=== PATIENT | female | born 1995 | race Caucasian/White ===

== ENCOUNTER 2019-06-19 18:02 | Emergency (ER) | payer OTHER ==
--- NOTE | 2019-06-19 19:51 | ER Document Report ---
ED Medical Screen (RME) - General Chief Complaint: Flank Pain Stated Complaint: BLOOD IN URINE Time Seen by Provider: 06/19/19 19:41 Mode of Arrival: Ambulatory Information source: Patient Notes: 24-year-old female presents to ED for left flank pain with hematuria burning with urination and nausea and lightheadedness and dizziness. She is alert oriented respirations regular nonlabored at this time. She states she did go to the urgent care and they told her she was probably going to need IV fluids and she would need to go to the emergency room. She states she has not been drinking enough fluids she thinks she is probably dehydrated. She states she has had UTIs in the past that have been bad enough that they were almost kidney infections. She states she is a former smoker has not smoked for the last 2 weeks. She states she does drink daily 8-10 drinks a day. She is alert oriented respirations regular nonlabored at this time. I will get blood and urine and renal ultrasound and have her seen by another provider. I have greeted and performed a rapid initial assessment of this patient. A comprehensive ED assessment and evaluation of the patient, analysis of test res ults and completion of medical decision making process will be conducted by an additional ED providers. Past Medical History - General Information source: Patient - Social History Cigarette use (# per day): No - Quit 2 weeks ago Frequency of alcohol use: Heavy - 8-10 drinks a day Drug Abuse: None Lives with: Alone Family history: Reviewed & Not Pertinent - Past Medical History Cardiac Medical History: Reports: None Pulmonary Medical History: Reports: None EENT Medical History: Reports: None Neurological Medical History: Reports: None Endocrine Medical History: Reports: Other - Hypoglycemia, Renal/ Medical History: Reports: Other - multiple miscarriages Malignancy Medical History: Reports: None GI Medical History: Reports: None Musculoskeltal Medical History: Reports None Skin Medical History: Reports None Psychiatric Medical History: Reports: None Traumatic Medical History: Reports: None Infectious Medical History: Reports: None Past Surgical History: Reports: Hx Umbilical Hernia Physical Exam - Vital signs Vitals: Temp Pulse Resp BP Pulse Ox 98.2 F 92 18 125/73 98 06/19/19 18:17 06/19/19 18:17 06/19/19 18:17 06/19/19 18:17 06/19/19 18:17 Course - Vital Signs Vital signs: Temp Pulse Resp BP Pulse Ox 98.2 F 92 18 125/73 98 06/19/19 18:17 06/19/19 18:17 06/19/19 18:17 06/19/19 18:17 06/19/19 18:17
[2019-06-19 20:22] LABS: ABSOLUTE BASOPHILS # (AUTO) 0.1 10^3/uL (0.0-0.2); ABSOLUTE LYMPHOCYTES (AUTO) 1.9 10^3/uL (0.5-4.7); ABSOLUTE MONOCYTES (AUTO) 0.8 10^3/uL (0.1-1.4); ABSOLUTE NEUT (AUTO) 7.4 10^3/uL (1.7-8.2); BASOPHILS % (AUTO) 0.5 % (0-2); EOSINOPHILS % (AUTO) 0.4 % (0-6); HEMATOCRIT 44.7 % (36.0-47.0); HEMOGLOBIN 15.9 g/dL (12.0-15.5); LYMPHOCYTES % (AUTO) 18.7 % (13-45); MEAN CORPUSCULAR HEMOGLOBIN 30.8 pg (27.0-33.4); MEAN CORPUSCULAR HGB CONC 35.5 g/dL (32.0-36.0); MEAN CORPUSCULAR VOLUME 87 fl (80-97); MONOCYTES % (AUTO) 7.8 % (3-13); PLATELET COUNT 278 10^3/uL (150-450); RED BLOOD COUNT 5.15 10^6/uL (3.72-5.28); RED CELL DISTRIBUTION WIDTH 14.3 % (11.5-14.0); SEGMENTED NEUTROPHILS % (AUTO) 72.6 % (42-78); TOTAL CELLS COUNTED % (AUTO) 100 %; WHITE BLOOD COUNT 10.1 10^3/uL (4.0-10.5)
[2019-06-19 20:38] LABS: ALBUMIN 5.8 g/dL (3.5-5.0); ALKALINE PHOSPHATASE 71 U/L (38-126); ANION GAP 14 (5-19); ASPARTATE AMINO TRANSFERASE 22 U/L (14-36); BILIRUBIN,DIRECT 0.2 mg/dL (0.0-0.4); BILIRUBIN,TOTAL 0.9 mg/dL (0.2-1.3); BLOOD UREA NITROGEN 7 mg/dL (7-20); CALCIUM 10.2 mg/dL (8.4-10.2); CARBON DIOXIDE 25 mmol/L (22-30); CHLORIDE 102 mmol/L (98-107); GLUCOSE 93 mg/dL (75-110); POTASSIUM 3.9 mmol/L (3.6-5.0); TOTAL PROTEIN 9.7 g/dL (6.3-8.2)
[2019-06-19 20:39] LABS: ALCOHOL < 10 mg/dL (NONE DETECTED); APPEARANCE,URINE CLOUDY; BILIRUBIN,URINE NEGATIVE (NEGATIVE); COLOR,URINE YELLOW; GLUCOSE, URINE NEGATIVE (NEGATIVE); KETONES,URINE NEGATIVE (NEGATIVE); PROTEIN,URINE 30 mg/dL (NEGATIVE); URINE SPECIFIC GRAVITY 1.008; UROBILINOGEN,URINE NEGATIVE mg/dL (<2.0)
--- NOTE | 2019-06-19 21:02 | RADIOLOGY REPORT (SQ) ---
EXAM DESCRIPTION: US RETROPERITONEUM COMPLETED DATE/TME: 06/19/2019 19:52 CLINICAL HISTORY: 24 years Female Left flank pain COMPARISON: None. TECHNIQUE: Transabdominal grayscale imaging performed to evaluate the kidneys and urinary bladder. FINDINGS: The right kidney is normal in size and echogenicity. No hydronephrosis. No evidence of mass or calculus. Left kidney also normal in size and echogenicity. 4 mm echogenic focus in the midportion. No hydronephrosis. Bladder is not well seen. IMPRESSION: No evidence of hydronephrosis Small 4 mm left renal stone.
--- NOTE | 2019-06-19 23:00 | ER Document Report ---
ED General - General Chief Complaint: Urinary Problem Stated Complaint: BLOOD IN URINE Time Seen by Provider: 06/19/19 19:41 Mode of Arrival: Ambulatory Information source: Patient Notes: 24-year-old female presents to ED for left flank pain with hematuria burning with urination and nausea and lightheadedness and dizziness. She is alert oriented respirations regular nonlabored at this time. She states she did go to the urgent care and they told her she was probably going to need IV fluids and she would need to go to the emergency room. She states she has not been drinking enough fluids she thinks she is probably dehydrated. She states she has had UTIs in the past that have been bad enough that they were almost kidney infections. She states she is a former smoker has not smoked for the last 2 weeks. She states she does drink daily 8-10 drinks a day. She is alert oriented respirations regular nonlabored at this time. I will get blood and urine and renal ultrasound and have her seen by another provider. 24-year-old female arrives with her with chief complaint of having left flank pain and hematuria for 24 hours but also dysuria for 1 week. Patient has a prior history of similar symptoms. She has never had a kidney stone in the past. Her father and aunt have required lithotripsy and multiple other procedures for their kidney stones.. Patient reports her anxiety has been increased to the last 2 weeks after she stopped smoking. She started smoking when she was 16 and smoked between 2 and 3 packs/day.. She has a less than with a 16 hemoglobin. Patient also reports she was vaping for the last 4 months and stopped this when she was in [place]. She was coughing up black phlegm at the time. TRAVEL OUTSIDE OF THE [place] IN LAST 30 DAYS: No - HPI Onset: This morning - Related Data Allergies/Adverse Reactions: Fish Containing Products Allergy (Verified 06/19/19 22:08) hydroxyzine Allergy (Verified 06/19/19 22:08) ibuprofen Allergy (Verified 06/19/19 22:08) latex Allergy (Verified 06/19/19 23:37) oxycodone Allergy (Verified 06/19/19 22:08) Penicillins Allergy (Verified 06/19/19 22:08) promethazine Allergy (Verified 06/19/19 23:37) tramadol Allergy (Verified 06/19/19 22:08) Past Medical History - General Information source: Patient - Social History Smoking Status: Former Smoker Cigarette use (# per day): No - Quit 2 weeks ago Chew tobacco use (# tins/day): No Smoking Education Provided: No Frequency of alcohol use: Heavy Drug Abuse: None Lives with: Alone Family History: Reviewed & Not Pertinent Patient has suicidal ideation: No Patient has homicidal ideation: No - Past Medical History Cardiac Medical History: Reports: None Pulmonary Medical History: Reports: None EENT Medical History: Reports: None Neurological Medical History: Reports: None Endocrine Medical History: Reports: Other - Hypoglycemia, Renal/ Medical History: Reports: Other - multiple miscarriages Malignancy Medical History: Reports: None GI Medical History: Reports: None Musculoskeletal Medical History: Reports None Skin Medical History: Reports None Psychiatric Medical History: Reports: None, Hx Depression Traumatic Medical History: Reports: None Infectious Medical History: Reports: None Past Surgical History: Reports: Hx Umbilical Hernia Review of Systems - Review of Systems Constitutional: See HPI, Weakness - Patient has had poor p.o. intake and limited fluids and is very dry EENT: No symptoms reported Cardiovascular: No symptoms reported Respiratory: No symptoms reported Gastrointestinal: No symptoms reported Genitourinary: No symptoms reported Female Genitourinary: No symptoms reported Musculoskeletal: No symptoms reported Skin: No symptoms reported Hematologic/Lymphatic: No symptoms reported Neurological/Psychological: No symptoms reported Physical Exam - Vital signs Vitals: Temp Pulse Resp BP Pulse Ox 98.2 F 92 18 125/73 98 06/19/19 18:17 06/19/19 18:17 06/19/19 18:17 06/19/19 18:17 06/19/19 18:17 Interpretation: Normal - HEENT Head: Normocephalic Eyes: Normal Conjunctiva: Normal Cornea: Normal Extraocular movements intact: Yes Eyelashes: Normal Pupils: PERRL Sinus: Normal Nasal: Normal Mucous membranes: Dry Pharynx: Normal Neck: Normal - Respiratory Respiratory status: No respiratory distress Chest status: Nontender Breath sounds: Normal Chest palpation: Normal - Cardiovascular Rhythm: Regular Heart sounds: Normal auscultation Murmur: No Friction rub: No Dorcas's crunch: No - Abdominal Inspection: Normal Distension: No distension Bowel sounds: Normal Tenderness: Tender - Suprapubic as well as left flank Organomegaly: No organomegaly - Back Back: Normal - Extremities General upper extremity: Normal inspection General lower extremity: Normal inspection - Neurological Neuro grossly intact: Yes Cognition: Normal Orientation: AAOx4 [place] Coma Scale Eye Opening: Spontaneous Genie Coma Scale Verbal: Oriented Genie Coma Scale Motor: Obeys Commands Genie Coma Scale Total: 15 Speech: Normal Cranial nerves: Normal Cerebellar coordination: Normal Motor strength normal: LUE, RUE, LLE, RLE - Psychological Associated symptoms: Normal affect - Skin Skin Temperature: Warm Skin Moisture: Dry Course - Vital Signs Vital signs: Temp Pulse Resp BP Pulse Ox 98.6 F 72 18 114/67 99 06/19/19 22:57 06/19/19 22:57 06/19/19 22:57 06/19/19 22:57 06/19/19 22:57 - Laboratory Result Diagrams: 06/19/19 20:05 06/19/19 20:05 Laboratory results interpreted by me: 06/19/19 06/19/19 06/19/19 20:05 20:05 20:05 Hgb 15.9 H RDW 14.3 H Creatinine 0.44 L Total Protein 9.7 H Albumin 5.8 H Urine Protein 30 H Urine Blood LARGE H Leukocyte Esterase Rfl LARGE H - Diagnostic Test Radiology reviewed: Reports reviewed Radiology results interpreted by me: 06/20/19 01:58 Ultrasound reported kidney stone on the left [address] reveals no kidney stone; when informed of this patient advised" that she may have passed a kidney stone" Critical Care Note - Critical Care Note Total time excluding time spent on procedures (mins): 90 Comments: Patient and were informed of lab reports and ultrasound report and advised for IV fluids and for CT scan to evaluate where kidney stone lies. Discharge - Discharge Clinical Impression: Kidney stones, Acute hemorrhagic cystitis, Polycythemia secondary to smoking Hematuria Qualifiers: Hematuria type: unspecified type Qualified Code(s): R31.9 - Hematuria, unspecified Cigarette nicotine dependence Qualifiers: Substance use status: uncomplicated Qualified Code(s): F17.210 - Nicotine dependence, cigarettes, uncomplicated Condition: Good Disposition: HOME, SELF-CARE Additional Instructions: Follow-up with personal doctor ; return to ER as needed; take medicines as directed; good luck with continuing your cigarette cessation.. If you continue to be cigarette free for greater than 5 years your heart will be as clean as if you have never smoked but you will continue to have some cigarette margaret in your lungs. This will remain there for your life but cessation now will decrease your risk for lung cancer. Also encourage fluids avoid carbonated drinks and I advised either tea or water or Pedialyte for now. Avoid running jumping or using your Achilles or knee tendons because of the Levaquin medication and avoid sun bathing for least 2 weeks. Prescriptions: Lorazepam [Ativan 1 mg Tablet] 1 mg PO HSP PRN #10 tablet PRN Reason: Levofloxacin [Levaquin 500 mg Tablet] 500 mg PO DAILY #10 tablet
[2019-06-19] MEDS ORDERED: NORMAL SALINE 1000 ML 1,000 ML IV ONE (23:04)
[2019-06-19] MEDS ORDERED: KETOROLAC TROMETHAMINE INJ/PF 30 MG/1 ML SDV IV ONE (23:05)
[2019-06-19] MEDS ORDERED: PROMETHAZINE HCL INJ 25 MG/1 ML VIAL IV ONE (23:06)
[2019-06-20] MEDS ORDERED: ONDANSETRON HCL INJ/PF 4 MG/2 ML SDV IV ONE (00:02)
[2019-06-20] MEDS ORDERED: LEVOFLOXACIN 750 MG/D5W RTU 150 ML IV ONE (01:26)
--- NOTE | 2019-06-20 01:28 | RADIOLOGY REPORT (SQ) ---
EXAM DESCRIPTION: CT ABDOMEN PELVIS WITHOUT IV CONTRAST COMPLETED DATE/TME: 06/19/2019 23:04 CLINICAL HISTORY: 24 years, Female, left flank pain. HCG NEG COMPARISON: Ultrasound 06/19/2019 TECHNIQUE: 324 Images stored on PACS. All CT scanners at this facility use dose modulation, iterative reconstruction, and/or weight based dosing when appropriate to reduce radiation dose to as low as reasonably achievable (ALARA). [facility]: Dose Right [facility]: CareDose [facility]: Dose Right [facility]: Teradose 4D [facility]: [employer] LIMITATIONS: None. FINDINGS: The visualized lung bases are unremarkable. Osseous structures are grossly intact. The visualized liver, spleen, adrenal glands, pancreas, kidneys are unremarkable. Questionable small left renal calculus described on ultrasound is not appreciated on CT. No obstructing calculus or hydronephrosis. The gallbladder is present. No gross evidence for bowel obstruction. Large amount of stool in the colon. Normal appendix. No free air or free fluid. IMPRESSION: No definitive urinary tract calculi. Abundant stool in the colon TECHNICAL DOCUMENTATION: Quality ID # [id number]: Final reports with documentation of one or more dose reduction techniques (e.g., Automated exposure control, adjustment of the mA and/or kV according to patient size, use of iterative reconstruction technique) copyright 2011 [employer]- All Rights Reserved
[2019-06-20] MEDS ORDERED: LEVOFLOXACIN 750 MG TABLET PO ONE (01:44)
[2019-06-20 02:35] VITALS: BP 109/68
== END 2019-06-20 02:40 | disposition home or self-care (01) ==
LOC: ER 18:02
DX: N30.01 Acute cystitis with hematuria (principal); N20.0 Calculus of kidney; F17.218 Nicotine dependence, cigarettes, with other nicotine-induced disorders; D75.1 Secondary polycythemia; R11.0 Nausea; R53.1 Weakness; R42 Dizziness and giddiness; Z91.013 Allergy to seafood; Z88.8 Allergy status to other drugs, medicaments and biological substances; Z88.6 Allergy status to analgesic agent; Z88.5 Allergy status to narcotic agent; Z91.040 Latex allergy status; Z88.0 Allergy status to penicillin
CPT/HCPCS: 99285; 96361; 96374; 36415; 87086; 80307; 84703; 85025; 87088; 80053; 81001; 76770; 74176; J2405; J7030; 87186

== ENCOUNTER 2019-07-26 00:12 | Emergency (ER) | payer OTHER ==
--- NOTE | 2019-07-26 02:56 | ER Document Report ---
Entered by SAHIL FITCH SCRIBE 07/26/19 0139 Acting as scribe for:ALYCE SOLIMAN IV, MD ED General - General Chief Complaint: Chest Pain Stated Complaint: CHEST PAIN Time Seen by Provider: 07/26/19 01:15 Information source: Patient Notes: This 24-year-old female presents to the emergency department complaining of chest pain that began two days ago. Patient explains that chest pain was on and off yesterday then her chest pain was worse today with radiation to her back. Patient reports fever (99), swollen left lymph node and thick mucous. Patient denies cough and body aches. Patient explains that both of her parents, who live in [place], have tested positive for COVID-19. Patient said that the last time she was in contact with her parents was a couple of months ago. Patient states that around that time, she was seen by her PCP for fever and respiratory symptoms. Patient explains that her results came back negative for influenza and at the time she could not have the COVID-19 test "due to the yin". Patient said that she was given albuterol and some antibiotics for walking pnuemonia. Patient said that she did not take the antibiotics but used the inhaler which provided relief. Patient said that she felt fine up until two days ago. Patient said that her lungs feel like "they are on fire" and the "air in my windpipe hurts". Patient mentions that due to her severe anxiety and medicine changes she has had some panic attacks where she has had a hard time breathing. Patient also states that she quit smoking a few months ago and "caved two days ago with two cigarettes". TRAVEL OUTSIDE OF THE [place] IN LAST 30 DAYS: No - Related Data Allergies/Adverse Reactions: Fish Containing Products Allergy (Verified 06/19/19 22:08) hydroxyzine Allergy (Verified 06/19/19 22:08) ibuprofen Allergy (Verified 06/19/19 22:08) latex Allergy (Verified 06/19/19 23:37) oxycodone Allergy (Verified 06/19/19 22:08) Penicillins Allergy (Verified 06/19/19 22:08) promethazine Allergy (Verified 06/19/19 23:37) tramadol Allergy (Verified 06/19/19 22:08) Past Medical History - General Information source: Patient - Social History Smoking Status: Former Smoker Cigarette use (# per day): No Chew tobacco use (# tins/day): No Family History: Reviewed & Not Pertinent Patient has suicidal ideation: No Patient has homicidal ideation: No Psychiatric Medical History: Reports: Hx Depression Past Surgical History: Reports: Hx Umbilical Hernia Review of Systems - Review of Systems Constitutional: See HPI, Fever EENT: No symptoms reported Cardiovascular: See HPI, Chest pain Respiratory: See HPI, Sputum. denies: Cough Gastrointestinal: No symptoms reported Genitourinary: No symptoms reported Female Genitourinary: No symptoms reported Musculoskeletal: See HPI, Back pain Skin: No symptoms reported Hematologic/Lymphatic: No symptoms reported Neurological/Psychological: No symptoms reported -: Yes All other systems reviewed and negative Physical Exam - Vital signs Vitals: Temp Pulse Resp BP Pulse Ox 98.3 F 95 17 115/62 100 07/26/19 00:13 07/26/19 00:13 07/26/19 00:07/26/19 00:07/26/19 00:13 - Notes Notes: Physical Exam: General: Alert, appears well. HEENT: Normocephalic. Atraumatic. PERRL. Extraocular movements intact. Oropharynx clear. 1 cm mobile lymphadenopathy in right anterior cervical change. Neck: Supple. Non-tender. Respiratory: No respiratory distress. Clear and equal breath sounds bilaterally. Cardiovascular: Regular rate and rhythm. Abdominal: Normal Inspection. Non-tender. No distension. Normal Bowel Sounds. Back: No gross abnormalities. Extremities: Moves all four extremities. Upper extremities: Normal inspection. Normal ROM. Lower extremities: Normal inspection. No edema. Normal ROM. Neurological: Normal cognition. AAOx4. Normal speech. Psychological: Normal affect. Normal Mood. Skin: Warm. Dry. Normal color. Course - Re-evaluation Re-evalutation: 07/26/19 03:19 Results of ED MSE discussed with patient. All questions were answered prior to discharge. Emergency signs and symptoms, reasons to return to the emergency department discussed with patient. 07/26/19 03:22 Patient was tested for covid 19 and was instructed about self quarantine. - Vital Signs Vital signs: Temp Pulse Resp BP Pulse Ox 98.3 F 95 17 115/62 100 07/26/19 00:13 07/26/19 00:13 07/26/19 00:13 07/26/19 00:13 07/26/19 00:13 - Diagnostic Test Radiology reviewed: Reports reviewed - EKG Interpretation by Me Additional EKG results interpreted by me: 07/26/19 03:20 EKG obtained on 07/26/2019 at 0200 hrs. was interpreted by this MD. Findings: Normal sinus rhythm, rate 82, P waves proceed QRS complexes, QRS complexes appear narrow, axis is normal, there are no obvious patterns of ST segment elevation or depression seen to suggest acute myocardial ischemia or infarction. Impression: Normal sinus rhythm with nonspecific ST segments Discharge - Discharge Clinical Impression: Chest pain Qualifiers: Chest pain type: unspecified Qualified Code(s): R07.9 - Chest pain, unspecified Condition: Good Disposition: HOME, SELF-CARE Instructions: Chest Pain of Unclear Cause ([facility]) Additional Instructions: Return to the Emergency Department without delay if any worse. HOME CARE INSTRUCTIONS & INFORMATION: Thank you for choosing us for your medical needs. We hope you're satisfied with the care you received. After you leave, you must properly care for your problem and, at the same time, observe its progress. Any condition can change. Some illnesses can change rapidly over hours or days. If your condition worsens, return to the Emergency Department or see your physician promptly. ABOUT YOUR X-RAYS AND EKG'S: If you had an EKG or X-rays taken, they have been read by the Emergency Physician. The X-rays and EKG's will also be read by a Radiologist or Billing Collections Specialist within 24 hours. If discrepancies are noted, you will be notified by telephone. Please be certain the ED has a correct telephone number & address where you can be reached. Also, realize that some fractures or abnormalities do not show up on initial X-rays. If your symptoms continue, see your physician. ABOUT YOUR LABORATORY TEST: If you had laboratory tests, the results have been reviewed by the Emergency Physician. Some test results (for example cultures) may not be available for several days. You will be contacted if any test result shows you need additional treatment. Please be certain the ED has a correct telephone number and address where you can be reached. ABOUT YOUR MEDICATIONS: You will receive instructions on how to take your medicine on the prescription label you receive. Additional information may be provided by the Pharmacy. If you have questions afterwards, call the ED for clarification or further instructions. Some prescribed medications may cause drowsiness. Do not perform tasks such as driving a car or operating machinery without consulting your Pharmacist. If you feel you need a refill of pain medication, your condition will need re-evaluation. Please do not call for a refill of any medication. ABOUT YOUR SIGNATURE: Signature of this document acknowledges to followin. Understanding that you received emergency treatment and that you may be released before al medical problems are known or treated. Please be certain the ED has a correct phone number & address where you can be reached. 2. Acknowledgement that you will arrange for follow-up care as recommended. 3. Authorization for the Emergency Physician to provide information to your follow-up Physician in order to maximize your care. AT ANY TIME, IF YOUR SYMPTOMS CHANGE SIGNIFICANTLY OR WORSEN OR YOU DEVELOP NEW SYMPTOMS, RETURN TO THE EMERGENCY DEPARTMENT IMMEDIATELY FOR RE-EVALUATION. OUR GOAL IS TO PROVIDE EXCELLENT MEDICAL CARE! WE HOPE THAT WE HAVE MET YOUR EXPECTATIONS DURING YOUR EMERGENCY DEPARTMENT VISIT AND THAT YOU FEEL YOU HAVE RECEIVED EXCELLENT CARE! Referrals: TEVIN TREVINO MD [HONORARY] - Follow up as needed I personally performed the services described in the documentation, reviewed and edited the documentation which was dictated to the scribe in my presence, and it accurately records my words and actions.
--- NOTE | 2019-07-26 03:00 | RADIOLOGY REPORT (SQ) ---
CLINICAL INDICATION: chest pain. TECHNIQUE: A single portable AP view was obtained of the chest at 0235 hours. COMPARISON: None. FINDINGS: The cardiomediastinal silhouette is normal. The lungs are grossly clear. No evidence of effusion or pneumothorax. The visualized bones are unremarkable. IMPRESSION: No evidence of active intrathoracic disease.
[2019-07-26 03:34] VITALS: BP 106/67
--- NOTE | 2019-07-26 09:50 | EKG REPORT ---
SEVERITY:- ABNORMAL ECG - ATRIAL FIBRILLATION : Confirmed by: Ally Evans MD 26-Jul-2019 09:50:30
== END 2019-07-26 03:35 | disposition home or self-care (01) ==
LOC: ER 00:12
DX: Z20.828 Contact with and (suspected) exposure to other viral communicable diseases (principal); R07.9 Chest pain, unspecified; R50.9 Fever, unspecified; F41.9 Anxiety disorder, unspecified; Z91.040 Latex allergy status; Z88.0 Allergy status to penicillin; Z88.6 Allergy status to analgesic agent
CPT/HCPCS: 71045; 87635; 93005; 93010; 99285

== ENCOUNTER 2019-07-31 22:46 | Emergency (ER) | payer OTHER ==
[2019-07-31] MEDS ORDERED: DEXAMETHASONE CONC 1 MG/ML SOLN PO ONE (23:04)
[2019-07-31] MEDS ORDERED: PENICILLIN G BENZATHINE 1.2 MILLION UNIT/2 ML DISP.SYRIN IM ONE (23:04)
--- NOTE | 2019-07-31 23:10 | ER Document Report ---
ED General - General Stated Complaint: THROAT PAIN Notes: Patient is a 24-year-old white female who was seen recently for suspected viral infection, had a negative coronavirus test who presented outpatient recently for recurrent symptoms. She states that she had a "ulceration develop to the right back of the throat" that looked like a pimple. She states the area opened and began to drain some foul tasting fluid. She states the right side was significantly more swollen than the left and was previously pushing on the uvula. She states it has since resolved some of the uvula is now midline again. She states the back of the throat is diffusely erythematous and painful, worse with swallowing, coughing or talking. She denies any IV drug abuse. Admits to some intermittent subjective fevers. States that she was given Magic mouthwash which she has been using without any significant improvement. Has been trying rest and Tylenol [id number]-[id number] without any improvement. She reports she was not previously swabbed for strep. She denies any trouble breathing or pooling of secretions. TRAVEL OUTSIDE OF THE [place] IN LAST 30 DAYS: No - Related Data Allergies/Adverse Reactions: Fish Containing Products Allergy (Verified 06/19/19 22:08) hydroxyzine Allergy (Verified 06/19/19 22:08) ibuprofen Allergy (Verified 06/19/19 22:08) latex Allergy (Verified 06/19/19 23:37) oxycodone Allergy (Verified 06/19/19 22:08) Penicillins Allergy (Verified 06/19/19 22:08) promethazine Allergy (Verified 06/19/19 23:37) tramadol Allergy (Verified 06/19/19 22:08) Home Medications: albuterol inhaler Past Medical History - Social History Smoking Status: Never Smoker Family History: Reviewed & Not Pertinent Patient has suicidal ideation: No Patient has homicidal ideation: No Psychiatric Medical History: Reports: Hx Depression Past Surgical History: Reports: Hx Umbilical Hernia Review of Systems - Review of Systems EENT: Throat pain -: Yes All other systems reviewed and negative Physical Exam - Vital signs Vitals: Temp Pulse Resp BP Pulse Ox 98.1 F 80 13 127/63 H 99 07/31/19 22:52 07/31/19 22:52 07/31/19 22:52 07/31/19 22:52 07/31/19 22:52 - General General appearance: Appears well, Alert In distress: None - HEENT Head: Normocephalic, Atraumatic Eyes: Normal Conjunctiva: Normal Extraocular movements intact: Yes Eyelashes: Normal Pupils: PERRL Ears: Normal External canal: Normal Tympanic membrane: Normal Nasal: Normal Mouth/Lips: Normal Mucous membranes: Normal Pharynx: Other - Injected posterior pharynx diffusely as well as the tonsillar fauces. The right tonsillar and peritonsillar areas noted to be moderately edematous as compared with the left. There is no obvious peritonsillar abscess or pointing from prior area of described drainage. The uvula is midline without edema or erythema. Airway patent. No pooling of secretions. No sublingual or submental swelling. No trismus. Neck: Normal, Lymphadenopathy, Supple - Respiratory Respiratory status: No respiratory distress Chest status: Nontender Breath sounds: Normal Chest palpation: Normal - Cardiovascular Rhythm: Regular Heart sounds: Normal auscultation - Neurological Neuro grossly intact: Yes Cognition: Normal Orientation: AAOx4 Sibley Coma Scale Eye Opening: Spontaneous Sibley Coma Scale Verbal: Oriented Genie Coma Scale Motor: Obeys Commands Sibley Coma Scale Total: 15 Speech: Normal - Psychological Associated symptoms: Normal affect, Normal mood - Skin Skin Temperature: Warm Skin Moisture: Dry Skin Color: Normal Course - Re-evaluation Re-evalutation: 07/31/19 23:16 Patient's history and physical consistent with a previously self draining peritonsillar abscess on the right. There is no evidence today of airway compromise or uvular deviation. There is no trismus or submental swelling. Patient has Maries Magic mouthwash and will continue to use as previously prescribed. She was given a shot of Bicillin LA here, sent home on clindamycin as well as given a dose of Decadron here. She will follow-up in no more than 48 hours for close reevaluation. We discussed indications for return and advised that she indeed return here or any ER immediately with any new, persistent or worsening symptoms. She verbalized understood and agreed. - Vital Signs Vital signs: Temp Pulse Resp BP Pulse Ox 98.1 F 80 13 127/63 H 99 07/31/19 22:52 07/31/19 22:52 07/31/19 22:52 07/31/19 22:52 07/31/19 22:52 Discharge - Discharge Clinical Impression: Tonsillitis, H/O peritonsillar abscess drainage, Peritonsillitis Condition: Stable Disposition: HOME, SELF-CARE Instructions: Ivy-Tonsillar Abscess ([facility]) Additional Instructions: Follow-up with your regular doctor in 2 to 3 days for reevaluation. Return here or any ER immediately with any new, persistent or worsening symptoms. Please call the ear nose and throat doctor you have been referred to for further outpatient monitoring, care and management Prescriptions: Clindamycin HCl 300 mg PO Q6 #40 capsule Referrals: GINA BROWN MD [ACTIVE STAFF] - Follow up as needed
[2019-08-01 00:28] VITALS: BP 115/73
== END 2019-07-31 23:45 | disposition home or self-care (01) ==
LOC: ER 22:46
DX: J36 Peritonsillar abscess (principal); R07.0 Pain in throat; R50.9 Fever, unspecified; R13.10 Dysphagia, unspecified; R05 Cough; Z88.8 Allergy status to other drugs, medicaments and biological substances; Z88.0 Allergy status to penicillin
CPT/HCPCS: 99282; 96372; J0561; J8540

== ENCOUNTER 2019-08-22 08:40 | Emergency (ER) | payer OTHER ==
[2019-08-22] MEDS ORDERED: NORMAL SALINE 500 ML IV ONE (10:25)
[2019-08-22 10:59] LABS: APPEARANCE,URINE CLEAR; BILIRUBIN,URINE NEGATIVE (NEGATIVE); COLOR,URINE STRAW; GLUCOSE, URINE NEGATIVE (NEGATIVE); KETONES,URINE NEGATIVE (NEGATIVE); LEUKOCYTE ESTERASE,URINE NEGATIVE (NEGATIVE); NITRITE,URINE NEGATIVE (NEGATIVE); PROTEIN,URINE NEGATIVE (NEGATIVE); URINE SPECIFIC GRAVITY 1.004; UROBILINOGEN,URINE NEGATIVE mg/dL (<2.0)
[2019-08-22 11:02] LABS: ABSOLUTE LYMPHOCYTES (AUTO) 1.5 10^3/uL (0.5-4.7); ABSOLUTE MONOCYTES (AUTO) 0.6 10^3/uL (0.1-1.4); ABSOLUTE NEUT (AUTO) 5.6 10^3/uL (1.7-8.2); BASOPHILS % (AUTO) 0.4 % (0-2); EOSINOPHILS % (AUTO) 0.6 % (0-6); HEMATOCRIT 40.3 % (36.0-47.0); LYMPHOCYTES % (AUTO) 19.2 % (13-45); MEAN CORPUSCULAR HEMOGLOBIN 29.4 pg (27.0-33.4); MEAN CORPUSCULAR HGB CONC 34.8 g/dL (32.0-36.0); MEAN CORPUSCULAR VOLUME 84 fl (80-97); MONOCYTES % (AUTO) 7.4 % (3-13); PLATELET COUNT 256 10^3/uL (150-450); RED BLOOD COUNT 4.78 10^6/uL (3.72-5.28); RED CELL DISTRIBUTION WIDTH 13.8 % (11.5-14.0); SEGMENTED NEUTROPHILS % (AUTO) 72.4 % (42-78); TOTAL CELLS COUNTED % (AUTO) 100 %; WHITE BLOOD COUNT 7.7 10^3/uL (4.0-10.5)
[2019-08-22 11:09] LABS: ALBUMIN 5.2 g/dL (3.5-5.0); ALKALINE PHOSPHATASE 68 U/L (38-126); ANION GAP 9 (5-19); ASPARTATE AMINO TRANSFERASE 23 U/L (14-36); BILIRUBIN,TOTAL 0.5 mg/dL (0.2-1.3); BLOOD UREA NITROGEN 9 mg/dL (7-20); CALCIUM 9.7 mg/dL (8.4-10.2); CARBON DIOXIDE 24 mmol/L (22-30); CHLORIDE 107 mmol/L (98-107); GLUCOSE 98 mg/dL (75-110); TOTAL PROTEIN 8.6 g/dL (6.3-8.2)
--- NOTE | 2019-08-22 12:30 | RADIOLOGY REPORT (SQ) ---
EXAM DESCRIPTION: KNEE RIGHT 3 VIEWS IMAGES COMPLETED DATE/TIME: 08/22/2019 12:17 pm REASON FOR STUDY: knee pain/trauma COMPARISON: None. NUMBER OF VIEWS: Three views. TECHNIQUE: AP, lateral, and sunrise patella radiographic images acquired of the right knee. LIMITATIONS: None. FINDINGS: MINERALIZATION: Normal. BONES: No acute fracture or dislocation. No worrisome bone lesions. JOINT: No effusion. SOFT TISSUES: No soft tissue swelling. No radio-opaque foreign body. OTHER: No other significant finding. IMPRESSION: NEGATIVE STUDY OF THE RIGHT KNEE. NO RADIOGRAPHIC EVIDENCE OF ACUTE INJURY. TECHNICAL DOCUMENTATION: JOB ID: [id number] 2010 [employer] All Rights Reserved Reading location - IP/workstation name: [email or web address]
--- NOTE | 2019-08-22 12:32 | RADIOLOGY REPORT (SQ) ---
EXAM DESCRIPTION: L SPINE WHOLE IMAGES COMPLETED DATE/TIME: 08/22/2019 12:17 pm REASON FOR STUDY: scoliosis/right radicular numbness/pain COMPARISON: None. NUMBER OF VIEWS: Five views including obliques. TECHNIQUE: AP, lateral, oblique, and sacral radiographic images acquired of the lumbar spine. LIMITATIONS: None. FINDINGS: MINERALIZATION: Normal. SEGMENTATION: Transitional vertebra. ALIGNMENT: Mild convex left scoliosis. VERTEBRAE: Maintained height. No fracture or worrisome bone lesion. DISCS: Preserved height. No significant osteophytes or end plate irregularity. POSTERIOR ELEMENTS: Pedicles and facets are intact. No pars defect or posterior arch defects. HARDWARE: None in the spine. PARASPINAL SOFT TISSUES: Normal. PELVIS: Intact as visualized. No fractures or worrisome bone lesions. SI joints intact. OTHER: No other significant finding. IMPRESSION: Mild scoliosis. No acute findings. TECHNICAL DOCUMENTATION: JOB ID: [id number] 2010 [employer]- All Rights Reserved Reading location - IP/workstation name: [email or web address]
--- NOTE | 2019-08-22 12:48 | ER Document Report ---
Entered by SAHIL FITCH SCRIBE 08/22/19 0918 Acting as scribe for:ALEJA HOLMAN MD ED General - General Chief Complaint: Numbness Stated Complaint: RIGHT LEG PAIN/NUMBNESS Time Seen by Provider: 08/22/19 09:05 Primary Care Provider: RAE SUNSHINE FNP-C [Primary Care Provider] - Follow up as needed Information source: Patient Notes: This 24-year-old presents to the emergency department complaining of right leg numbness that began this morning at 8:00 AM. Patient reports that she had a shooting pain from her right knee down her tillman and since then her right leg has been numb. Patient mentions that she has had leg numbness before and that is resolves on its own. Patient explains that she started taking Depro-Vera shot three weeks ago. Patient states that since taking the shot, she has been excessively eating and has had cloudy urine. Patient reports back pain. Patient denies fever and cough. Patient mentions that she was moving from [facility] to [place] all day yesterday. TRAVEL OUTSIDE OF THE [place] IN LAST 30 DAYS: No - Related Data Allergies/Adverse Reactions: Fish Containing Products Allergy (Verified 06/19/19 22:08) hydroxyzine Allergy (Verified 06/19/19 22:08) ibuprofen Allergy (Verified 06/19/19 22:08) latex Allergy (Verified 06/19/19 23:37) oxycodone Allergy (Verified 06/19/19 22:08) Penicillins Allergy (Verified 06/19/19 22:08) promethazine Allergy (Verified 06/19/19 23:37) tramadol Allergy (Verified 06/19/19 22:08) Home Medications: depo shot Past Medical History - General Information source: Patient - Social History Smoking Status: Former Smoker Cigarette use (# per day): No Chew tobacco use (# tins/day): No Family History: Reviewed & Not Pertinent, CVA Patient has homicidal ideation: No Renal/ Medical History: Reports: Hx Kidney Stones Skin Medical History: Reports Hx Eczema Psychiatric Medical History: Reports: Hx Anxiety, Hx Depression Past Surgical History: Reports: Hx Umbilical Hernia Review of Systems - Review of Systems Constitutional: See HPI. denies: Fever EENT: No symptoms reported Cardiovascular: No symptoms reported Respiratory: See HPI. denies: Cough Gastrointestinal: No symptoms reported Genitourinary: No symptoms reported Female Genitourinary: No symptoms reported Musculoskeletal: See HPI, Back pain, Other - Right leg numbness and pain Skin: No symptoms reported Hematologic/Lymphatic: No symptoms reported Neurological/Psychological: No symptoms reported -: Yes All other systems reviewed and negative Physical Exam - Vital signs Vitals: Temp 98.6 F 08/22/19 08:41 - Notes Notes: Physical Exam: General: Alert, appears well. HEENT: Normocephalic. Atraumatic. PERRL. Extraocular movements intact. O ropharynx clear. Neck: Supple. Non-tender. Respiratory: No respiratory distress. Clear and equal breath sounds bilaterally. Cardiovascular: Regular rate and rhythm. Abdominal: Normal Inspection. Non-tender. No distension. Normal Bowel Sounds. Back: No gross abnormalities. Extremities: Moves all four extremities. Upper extremities: Normal inspection. Normal ROM. Lower extremities: No edema. Normal ROM. Straight leg raise is normal. Decreased sensation to light touch on right medial lower extremity. Dorsiflexion and flexion of foot normal, bilaterally. Distal pulses are normal. Neurological: Normal cognition. AAOx4. Normal speech. Psychological: Normal affect. Normal Mood. Skin: Warm. Dry. Normal color. Course - Re-evaluation Re-evalutation: 08/22/19 12:39 Patient in no distress at this time. Patient still complains of numbness to light touch only in her right medial lower leg. In the L2-3 distribution. - Vital Signs Vital signs: Temp Pulse Resp BP Pulse Ox 98.6 F 80 14 105/59 L 100 08/22/19 08:44 08/22/19 08:44 08/22/19 08:44 08/22/19 08:44 08/22/19 08:44 08/22/19 12:42 Vital signs stable - Laboratory Result Diagrams: 08/22/19 10:30 08/22/19 10:30 Laboratory results interpreted by me: 08/22/19 10:30 Creatinine 0.47 L Total Protein 8.6 H Albumin 5.2 H Laboratories within normal limits no acute process. - Diagnostic Test Radiology reviewed: Image reviewed, Reports reviewed Radiology results interpreted by me: 08/22/19 12:42 LS-spine shows mild scoliosis no other acute process. Right knee normal anatomy no acute acute process no evidence of fractures. Discharge - Discharge Clinical Impression: Right knee pain, Right leg paresthesias, Scoliosis of lumbar spine Condition: Stable Disposition: HOME, SELF-CARE Additional Instructions: Sprained Knee Your sprained knee results from a stretching or tearing of the ligaments which support the joint. This often results from a bending stress -- such as a twisting fall while skiing or a "clip" while playing football. The ligaments will require time and protection to heal adequately. A knee sprain can be quite serious, and should be taken seriously. The usual treatment is splinting of the knee, ice packs, and elevation. You shouldn't walk on the leg if weightbearing is painful. Unless the sprain is obviously a minor one, follow-up exam is very important. The degree of ligament damage often cannot be fully assessed at first due to muscle spasm and pain. Your treatment plan may change based on the physician's findings during your follow-up examination. Call the doctor at once if there is severe swelling, increasing pain, numbness, or other alarming symptoms. Neuropathy Your symptoms are due to neuropathy. Neuropathy is nerve damage. There are many causes, including diabetes, immune disease, alcohol, blood vessel disease, and vitamin deficiency. The usual symptoms are pain and numbness. Neuropathy can occur anywhere, but it's most likely in the "longest" nerves. That's why the feet are most often affected. Sometimes the nerve damage can heal. But if the symptoms have lasted more than a few months, the damage is permanent. To avoid further damage, treat your underlying health problems carefully. If you have diabetes, keep the blood sugar as normal as possible. Avoid alcohol. Treat high blood pressure and high cholesterol. Treating chronic pain can be a problem. Obviously, you don't want to become addicted to pain medicine. Work closely with your doctor on pain management. Your options include antiinflammatory medicine, anti seizure medicine, antidepressants, and pain clinic management. Contact the doctor if there is a significant change. I recommend [id number] ibuprofen 400 mg may be taken with meals 3 times a day as needed for sprain right knee and is also may be helpful for the paresthesia and numbness in your right lower leg as well. Referrals: RAE SUNSHINE, [facility]-C [Primary Care Provider] - Follow up as needed I personally performed the services described in the documentation, reviewed and edited the documentation which was dictated to the scribe in my presence, and it accurately records my words and actions.
[2019-08-22 12:58] VITALS: BP 119/66
== END 2019-08-22 12:58 | disposition home or self-care (01) ==
LOC: ER 08:40
DX: R20.0 Anesthesia of skin (principal); M25.562 Pain in left knee; M41.9 Scoliosis, unspecified; R39.89 Other symptoms and signs involving the genitourinary system; Z79.3 Long term (current) use of hormonal contraceptives; Z91.013 Allergy to seafood; Z88.8 Allergy status to other drugs, medicaments and biological substances; Z91.040 Latex allergy status; Z88.6 Allergy status to analgesic agent; Z88.5 Allergy status to narcotic agent; Z88.0 Allergy status to penicillin
CPT/HCPCS: 99284; 96360; 36415; 84702; 85025; 81025; 80053; 81001; 73562; 72110; J7040

== ENCOUNTER 2019-09-03 16:53 | Emergency (ER) | payer OTHER ==
--- NOTE | 2019-09-03 17:45 | ER Document Report ---
ED Medical Screen (RME) - General Chief Complaint: Flank Pain Stated Complaint: FLANK PAIN Time Seen by Provider: 09/03/19 17:36 Primary Care Provider: RAE SUNSHINE FNP-C [Primary Care Provider] - Follow up as needed Mode of Arrival: Ambulatory Information source: Patient Notes: 24-year-old female patient presenting to the emergency department with chief complaint of recurrent urinary tract infections. Patient reports dysuria, urinary frequency, bilateral flank pain and vaginal pain. She reports she has been seen at multiple medical facilities and she states that every time she does a urine sample she is told there is no bacteria in it. Patient reports that her symptoms are persistent and worsening and she is hoping to get answers today. She denies any abnormal discharge. 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 Abdomen soft, nontender. I have greeted and performed a rapid initial assessment of this patient. A comprehensive ED assessment and evaluation of the patient, analysis of test results and completion of the medical decision making process will be conducted by additional ED providers. I have specifically instructed the patient or family members with the patient to immediately return to any nursing staff should anything change in the patient's condition or with their chief complaint. TRAVEL OUTSIDE OF THE [place] IN LAST 30 DAYS: No - Related Data Allergies/Adverse Reactions: cephalexin Allergy (Verified 09/03/19 17:37) Fish Containing Products Allergy (Verified 09/03/19 17:36) hydroxyzine Allergy (Verified 09/03/19 17:36) ibuprofen Allergy (Verified 09/03/19 17:36) latex Allergy (Verified 09/03/19 17:36) oxycodone Allergy (Verified 09/03/19 17:36) Penicillins Allergy (Verified 09/03/19 17:36) promethazine Allergy (Verified 09/03/19 17:36) tramadol Allergy (Verified 09/03/19 17:36) Past Medical History - Social History Frequency of alcohol use: None Drug Abuse: None Family history: Reviewed & Not Pertinent Renal/ Medical History: Reports: Hx Kidney Stones Skin Medical History: Reports Hx Eczema Psychiatric Medical History: Reports: Hx Anxiety, Hx Depression Past Surgical History: Reports: Hx Umbilical Hernia Physical Exam - Vital signs Vitals: Temp Pulse Resp BP Pulse Ox 98.2 F 79 18 112/65 100 09/03/19 16:54 09/03/19 16:54 09/03/19 16:54 09/03/19 16:54 09/03/19 16:54 Course - Vital Signs Vital signs: Temp Pulse Resp BP Pulse Ox 98.2 F 79 18 112/65 100 09/03/19 17:37 09/03/19 16:54 09/03/19 16:54 09/03/19 16:54 09/03/19 16:54 Doctor's Discharge - Discharge Referrals: RAE SUNSHINE, [facility]-C [Primary Care Provider] - Follow up as needed
[2019-09-03 18:43] LABS: APPEARANCE,URINE CLEAR; BILIRUBIN,URINE NEGATIVE (NEGATIVE); COLOR,URINE STRAW; GLUCOSE, URINE NEGATIVE (NEGATIVE); KETONES,URINE NEGATIVE (NEGATIVE); LEUKOCYTE ESTERASE,URINE NEGATIVE (NEGATIVE); NITRITE,URINE NEGATIVE (NEGATIVE); PROTEIN,URINE NEGATIVE (NEGATIVE); URINE SPECIFIC GRAVITY 1.009; UROBILINOGEN,URINE NEGATIVE mg/dL (<2.0)
[2019-09-03 18:57] LABS: ABSOLUTE EOSINOPHILS # (AUTO) 0.1 10^3/uL (0.0-0.6); ABSOLUTE LYMPHOCYTES (AUTO) 1.8 10^3/uL (0.5-4.7); ABSOLUTE MONOCYTES (AUTO) 0.4 10^3/uL (0.1-1.4); ABSOLUTE NEUT (AUTO) 4.1 10^3/uL (1.7-8.2); BASOPHILS % (AUTO) 0.5 % (0-2); EOSINOPHILS % (AUTO) 0.9 % (0-6); HEMOGLOBIN 14.1 g/dL (12.0-15.5); MEAN CORPUSCULAR HEMOGLOBIN 29.8 pg (27.0-33.4); MEAN CORPUSCULAR HGB CONC 35.2 g/dL (32.0-36.0); MEAN CORPUSCULAR VOLUME 85 fl (80-97); MONOCYTES % (AUTO) 6.2 % (3-13); PLATELET COUNT 278 10^3/uL (150-450); RED BLOOD COUNT 4.72 10^6/uL (3.72-5.28); RED CELL DISTRIBUTION WIDTH 13.8 % (11.5-14.0); SEGMENTED NEUTROPHILS % (AUTO) 64.4 % (42-78); TOTAL CELLS COUNTED % (AUTO) 100 %; WHITE BLOOD COUNT 6.3 10^3/uL (4.0-10.5)
[2019-09-03 19:59] LABS: ALBUMIN 4.8 g/dL (3.5-5.0); ALKALINE PHOSPHATASE 58 U/L (38-126); ANION GAP 9 (5-19); ASPARTATE AMINO TRANSFERASE 17 U/L (14-36); BILIRUBIN,TOTAL 0.4 mg/dL (0.2-1.3); BLOOD UREA NITROGEN 8 mg/dL (7-20); CALCIUM 9.6 mg/dL (8.4-10.2); CARBON DIOXIDE 24 mmol/L (22-30); CHLORIDE 107 mmol/L (98-107); GLUCOSE 85 mg/dL (75-110); POTASSIUM 4.3 mmol/L (3.6-5.0); TOTAL PROTEIN 8.2 g/dL (6.3-8.2)
[2019-09-03] MEDS ORDERED: PHENAZOPYRIDINE HCL 100 MG TABLET PO ONE (21:35)
[2019-09-03 21:36] VITALS: BP 115/68
--- NOTE | 2019-09-03 21:37 | ER Document Report ---
ED GI/ - General Chief Complaint: Flank Pain Stated Complaint: FLANK PAIN Time Seen by Provider: 09/03/19 17:36 Primary Care Provider: RAE SUNSHINE FNP-C [Primary Care Provider] - Follow up as needed Mode of Arrival: Ambulatory Information source: Patient Notes: 24-year-old female presented to ED with chief complaint of recurrent urinary tract infections. She states she had dysuria urinary frequency and bilateral flank pain and vaginal pain. She states she has been to multiple medical facilities and they tell her every time that she does not have a urinary tract infection but she has the pain and burning. She states she was seen by her [employer] and they did a pelvic exam but they were not able to give her the results and stated it would be several days. She came to the emergency room to have her urine checked to be sure she did not have a UTI. She was seen in the pit maturely before I saw her. Her urine was negative. She states she continues to have burning and pelvic cramping. I did offer her Pyridium for her discomfort. She did states she would like to have some Pyridium. I did give her a copy of her written labs reports and had her to follow-up with her primary care doctor. TRAVEL OUTSIDE OF THE [place] IN LAST 30 DAYS: No - HPI Patient complains to provider of: Vaginal pain Onset: Other - States is is goes on and off for several months. Timing/Duration: Intermittent Quality of pain: Burning, Pressure Severity at maximum: Moderate Severity in ED: Moderate Pain Level: 3 Location: Left flank, Right flank, Vaginal Vaginal bleeding (Compared to normal period): None Associated symptoms: Urinary frequency, Urinary urgency, Other - Vaginal burning flank pain Exacerbated by: Denies Relieved by: Denies Similar symptoms previously: Yes Recently seen / treated by doctor: Yes - Related Data Allergies/Adverse Reactions: cephalexin Allergy (Verified 09/03/19 17:37) Fish Containing Products Allergy (Verified 09/03/19 17:36) hydroxyzine Allergy (Verified 09/03/19 17:36) ibuprofen Allergy (Verified 09/03/19 17:36) latex Allergy (Verified 09/03/19 17:36) oxycodone Allergy (Verified 09/03/19 17:36) Penicillins Allergy (Verified 09/03/19 17:36) promethazine Allergy (Verified 09/03/19 17:36) tramadol Allergy (Verified 09/03/19 17:36) Past Medical History - General Information source: Patient - Social History Smoking Status: Never Smoker Frequency of alcohol use: None Drug Abuse: None Lives with: Family Family History: Reviewed & Not Pertinent, CVA Patient has homicidal ideation: No - Past Medical History Cardiac Medical History: Reports: None Pulmonary Medical History: Reports: None EENT Medical History: Reports: None Neurological Medical History: Reports: None Endocrine Medical History: Reports: None Renal/ Medical History: Reports: Hx Kidney Stones Malignancy Medical History: Reports: None GI Medical History: Reports: None Musculoskeletal Medical History: Reports None Skin Medical History: Reports Hx Eczema Psychiatric Medical History: Reports: Hx Anxiety, Hx Depression Traumatic Medical History: Reports: None Infectious Medical History: Reports: None Past Surgical History: Reports: Hx Umbilical Hernia - Immunizations Immunizations up to date: Yes Review of Systems - Review of Systems Constitutional: No symptoms reported EENT: No symptoms reported Cardiovascular: No symptoms reported Respiratory: No symptoms reported Gastrointestinal: No symptoms reported Genitourinary: Burning, Frequency, Urgency Female Genitourinary: No symptoms reported Musculoskeletal: No symptoms reported Skin: No symptoms reported Hematologic/Lymphatic: No symptoms reported Neurological/Psychological: No symptoms reported -: Yes All other systems reviewed and negative Physical Exam - Vital signs Vitals: Temp Pulse Resp BP Pulse Ox 98.2 F 79 18 112/65 100 09/03/19 16:54 09/03/19 16:54 09/03/19 16:54 09/03/19 16:54 09/03/19 16:54 Interpretation: Normal - General General appearance: Appears well, Alert - HEENT Head: Normocephalic, Atraumatic Eyes: Normal Pupils: PERRL - Respiratory Respiratory status: No respiratory distress Chest status: Nontender Breath sounds: Normal Chest palpation: Normal - Cardiovascular Rhythm: Regular Heart sounds: Normal auscultation Murmur: No - Abdominal Inspection: Normal Distension: No distension Bowel sounds: Normal Tenderness: Nontender Organomegaly: No organomegaly - Back Back: Normal, Tender, CVA tenderness - Extremities General upper extremity: Normal inspection, Nontender, Normal color, Normal ROM, Normal temperature General lower extremity: Normal inspection, Nontender, Normal color, Normal ROM, Normal temperature, Normal weight bearing. No: Chery's sign - Neurological Neuro grossly intact: Yes Cognition: Normal Orientation: AAOx4 Bond[place] Coma Scale Eye Opening: Spontaneous [place] Coma Scale Verbal: Oriented Bond[place]ant Coma Scale Motor: Obeys Commands Genie Coma Scale Total: 15 Speech: Normal Motor strength normal: LUE, RUE, LLE, RLE Sensory: Normal - Psychological Associated symptoms: Normal affect, Normal mood - Skin Skin Temperature: Warm Skin Moisture: Dry Skin Color: Normal Course - Re-evaluation Re-evalutation: 09/03/19 23:11 Offered patient a pelvic exam and wet mount. Patient refused. She stated she had waited long enough she wanted her results. Patient states she was seen by her [employer]ER today and the pelvic was done she does not want to have another pelvic done tonight when it is already been done. I offered her Pyridium for her symptoms. She states she would take temporary Pyridium and follow-up with her primary doctor. - Vital Signs Vital signs: Temp Pulse Resp BP Pulse Ox 99.1 F 104 H 15 115/68 97 09/03/19 21:35 09/03/19 21:35 09/03/19 21:35 09/03/19 21:35 09/03/19 21:35 - Laboratory Result Diagrams: 09/03/19 18:36 09/03/19 18:36 Laboratory results interpreted by me: 09/03/19 18:36 Creatinine 0.48 L Discharge - Discharge Clinical Impression: Dysuria Condition: Stable Disposition: HOME, SELF-CARE Additional Instructions: You were seen for dysuria today. Your urine does not show any signs or symptoms of a bladder infection or UTI. You state you wear to your [employer] and had a pelvic exam today and will not get the results back for couple days. Flank Pain We weren't able to prove an exact cause for your flank pain. Pain in the flank can be caused by a muscle strain or spasm. Sometimes a kidney stone causes pain, but can't be found on our tests. Infection in the kidney should be evident on a urine test. Early shingles can occasionally cause flank pain, without the rash that proves the diagnosis. On rare occasions, disease of the pancreas, aorta, spleen, or colon can create pain in the flank. At this time, there's no evidence of a dangerous condition, and it seems safe for you to be at home. If the pain goes away and does not come back, no fur ther testing will be needed. If pain persists, or becomes more severe, we may need to repeat some tests or order additional new testing. Blood in the urine, urgency to urinate frequently, and pain that radiates to the groin can indicate a kidney stone. Fever may mean that the pain is due to infection, either of the kidney or the colon (diverticulitis). If your pain is early shingles, you should develop an eruption of blisters in the painful area within a few days. Call the doctor or return if you have pain that is spreading or becoming more severe, pain that does not resolve with time, fever, or any other new symptoms. URINARY ANESTHETIC AGENT: You have been given a medication (Pyridium) for urinary tract discomfort. This medicine numbs the lining of the bladder and urethra, resulting in less pain, burning, and urgency. You may take it as needed, according to instructions. When the symptoms resolve, you can stop this medication (be sure to continue any other medications the doctor has given you). This medicine turns the urine a dark orange. It may stain underwear. Occasionally, it can cause nausea. Return for evaluation if there are any unexpected effects, such as itching, hives, or shortness of breath. FOLLOW-UP CARE: If you have been referred to a physician for follow-up care, call the physicians office for an appointment as you were instructed or within the next two days. If you experience worsening or a significant change in your symptoms, notify the physician immediately or return to the Emergency Department at any time for re-evaluation. Prescriptions: Phenazopyridine HCl [Pyridium] 100 mg PO TID #14 tablet Referrals: RAE SUNSHINE FNP-C [Primary Care Provider] - Follow up as needed
== END 2019-09-03 21:49 | disposition home or self-care (01) ==
LOC: ER 16:53
DX: R30.0 Dysuria (principal); R10.9 Unspecified abdominal pain; Z87.440 Personal history of urinary (tract) infections; Z88.6 Allergy status to analgesic agent; Z91.040 Latex allergy status; Z88.0 Allergy status to penicillin; Z87.442 Personal history of urinary calculi
CPT/HCPCS: 99284; 36415; 83690; 84703; 85025; 80053; 81001; J3490